=== PATIENT | male | born 1980 | race Hispanic/Latino ===

== ENCOUNTER 2020-11-27 15:53 | Emergency (ER) | payer SELFPAY | END 2020-11-27 16:15 | disposition left against medical advice (07) | LOC: ERS 15:53 | DX: Z53.21 Procedure and treatment not carried out due to patient leaving prior to being seen by health care provider (principal) ==

== ENCOUNTER 2020-11-29 07:16 | Emergency (ER) | payer SELFPAY | END 2020-11-29 08:13 | disposition home or self-care (01) | LOC: ERS 07:16 | DX: R07.89 Other chest pain (principal); R05 Cough | CPT/HCPCS: 71045 ==

== ENCOUNTER 2020-12-04 01:04 | Emergency (ER) | payer SELFPAY | END 2020-12-04 02:30 | disposition left against medical advice (07) | LOC: ERS 01:04 | DX: Z53.21 Procedure and treatment not carried out due to patient leaving prior to being seen by health care provider (principal) ==

== ENCOUNTER 2021-11-22 14:48 | Emergency (ER) | payer SELFPAY | END 2021-11-22 16:15 | disposition home or self-care (01) | LOC: ERS 14:48 | DX: U07.1 COVID-19 (principal) | CPT/HCPCS: 71046; U0003; U0005 ==

== ENCOUNTER 2023-12-24 21:31 | Emergency (ER) | payer SELFPAY ==
[2023-12-25] MEDS ORDERED: Ketorolac Tromethamine 30 MG (1 mL) VIAL ONE (01:23)
[2023-12-25] MEDS ORDERED: Methocarbamol 500 MG TAB ONE (01:23)
== END 2023-12-25 01:43 | disposition home or self-care (01) ==
LOC: ERS 21:31
DX: M54.50 Low back pain, unspecified (principal)
CPT/HCPCS: 72100; 72220; 96372; 99283; J1885